=== PATIENT | male | born 1985 | race Caucasian/White ===

== ENCOUNTER 2019-06-10 22:19 | Emergency (ER) | payer OTHER ==
[~2019-06-10] VITALS: Ht 175.2 cm; Wt 80.7 kg
[2019-06-10] MEDS ORDERED: DICLOXACILLIN500 MG PO (23:03)
[2019-06-10] MEDS ORDERED: Bactroban Oint22 GM T (23:03)
== END 2019-06-10 23:30 | disposition home or self-care (01) ==
LOC: ED 22:19
DX: L73.9 Follicular disorder, unspecified (principal); F19.10 Other psychoactive substance abuse, uncomplicated